=== PATIENT | female | born 1980 | race Hispanic/Latino ===

== ENCOUNTER 2017-07-22 21:37 | Emergency (ER) | payer OTHER, SELFPAY ==
--- NOTE | 2017-07-22 22:18 | RAD ---
FOUR VIEWS LEFT KNEE: 07/22/17 HISTORY: Pain. Swelling. COMPARISON: None. FINDINGS: Small suprapatellar fusion. Joint spaces are preserved. No fracture or malaligned. IMPRESSION: 1. Nonspecific suprapatellar effusion. 2. No fracture. POS: [facility]
== END 2017-07-22 22:30 | disposition home or self-care (01) ==
LOC: SCSER 21:37
DX: M25.462 Effusion, left knee (principal)